=== PATIENT | male | born 1990 | race Caucasian/White ===

== ENCOUNTER 2023-04-29 09:45 | Outpatient (CLI) | payer BC | END 2023-04-29 09:46 | disposition home or self-care (01) | LOC: CSHRAD 09:45 | PROVIDERS: ATTEND Surgery | DX: Z93.2 Ileostomy status (principal); K56.690 Other partial intestinal obstruction | CPT/HCPCS: 74280 ==

== ENCOUNTER 2024-06-21 19:06 | Outpatient (CLI) | payer BC, OTHER | END 2024-06-21 19:07 | disposition home or self-care (01) | LOC: CSHRAD 19:06 | PROVIDERS: ATTEND Nurse Practitioner Family | DX: R07.89 Other chest pain (principal) | CPT/HCPCS: 71046 ==